=== PATIENT | male | born 1955 | race African-American/Black ===

== ENCOUNTER 2019-10-08 13:25 | Emergency (ER) | payer BC, SELFPAY ==
[2019-10-08 14:18] LABS: Anion Gap 16 mmol/L (10-20); BUN (Urea Nitrogen) 14 mg/dL (8.4-25.7); Calc. Creatinine Clearance 0 mL/min (70-130); Calcium 9.7 mg/dL (7.8-10.44); Carbon Dioxide 23 mmol/L (23-31); Chloride 103 mmol/L (98-107); Estimated GFR-MDRD 78; Glucose 391 mg/dL (80-115); Potassium 4.3 mmol/L (3.5-5.1); Sodium 138 mmol/L (136-145)
[2019-10-08 14:20] LABS: #Basophils 0.1 thou/uL (0.0-0.2); #Eosinphils 0.1 thou/uL (0.0-0.7); #Monocytes 0.5 thou/uL (0.11-0.59); #Neutrophils 1.4 thou/uL (1.40-6.50); %Basophils 2.2 % (0.0-1.0); %Eosinophils 2.8 % (0.0-10.0); %Lymphocytes 48.9 % (21.0-51.0); %Monocytes 12.9 % (0.0-10.0); %Neutrophils 33.2 % (42.0-75.0); Hemoglobin 13.8 g/dL (14.0-18.0); Mean Corpuscular Hemoglobin 29.3 pg (27.0-31.0); Mean Corpuscular Volume 91.5 fL (78.0-98.0); Mean Platelet Volume 6.1 fL (7.4-10.4); Platelet Count 250 thou/uL (130-400); RBC Distribution Width 13.2 % (11.5-14.5); Red Blood Cell (RBC) Count 4.71 mill/uL (4.70-6.10); White Blood Cell (WBC) Count 4.1 thou/uL (4.8-10.8)
[2019-10-08 14:24] LABS: Bicarbonate (HCO3v) 27.3 mmol/L (22.0-28.0); CO2 Tension (PvCO2) 54.1 mmHg (40.0-50.0); Calcium, Ionized 1.23 mmol/L (See Comments:); Chloride 101 mmol/L (98-107); Hemoglobin - Calc 14.6 g/dL (14.0-18.0); Potassium 4.1 mmol/L (3.5-5.1); Sodium 138 mmol/L (138-145); vO2 Saturation-calc 90.4 % (60.0-85.0)
== END 2019-10-08 14:58 | disposition home or self-care (01) ==
LOC: BURERS 13:25
DX: E11.65 Type 2 diabetes mellitus with hyperglycemia (principal); I10 Essential (primary) hypertension; E78.5 Hyperlipidemia, unspecified; Z79.899 Other long term (current) drug therapy; Z79.84 Long term (current) use of oral hypoglycemic drugs; Z79.82 Long term (current) use of aspirin
CPT/HCPCS: 36416; 80048; 82330; 82803; 85025; 96360

== ENCOUNTER 2020-05-13 16:14 | Outpatient (CLI) | payer OTHER ==
--- NOTE | 2020-05-14 07:01 | RAD ---
LEFT LEG: Date: 05/13/2020 AP and lateral views are provided. No fracture or bony destructive lesion seen. There is a curious area of thickening or periosteal prom inence in the upper fibula near the neck. My guess is this is more likely longstanding than not. If t here was pain in this region specifically, then further imaging might be considered. IMPRESSION: No definite acute findings. Some unusual findings in the upper fibula which are more likely longstand ing than not, but if the upper leg is the site of pain, then further studies might be needed. POS: HOME
== END 2020-05-13 16:15 | disposition home or self-care (01) ==
LOC: BURRAD 16:14
PROVIDERS: ATTEND Clinical Nurse Specialist Medical-Surgical
DX: M79.605 Pain in left leg (principal)

== ENCOUNTER 2020-09-05 07:47 | Emergency (ER) | payer MEDICARE, MEDICAID ==
[2020-09-05] MEDS ORDERED: methylPREDNISolone Sod Succ/PF 125 MG/2 ML VIAL ONE (08:34)
== END 2020-09-05 09:00 | disposition home or self-care (01) ==
LOC: BURERS 07:47
DX: M54.5 Low back pain (principal); E11.9 Type 2 diabetes mellitus without complications; E78.5 Hyperlipidemia, unspecified; I10 Essential (primary) hypertension; Z79.899 Other long term (current) drug therapy; Z79.82 Long term (current) use of aspirin; Z79.84 Long term (current) use of oral hypoglycemic drugs
CPT/HCPCS: 96372; 99283; J2930

== ENCOUNTER 2025-08-27 09:20 | Outpatient (CLI) | payer OTHER ==
[2025-08-27 09:47] LABS: #Basophils 0.1 thou/uL (0.0-0.2); #Eosinophils 0.2 thou/uL (0.0-0.7); #Lymphocytes 2.0 thou/uL (1.20-3.40); #Monocytes 0.8 thou/uL (0.11-0.59); #Neutrophils 2.1 thou/uL (1.40-6.50); %Basophils 2.7 % (0.0-1.0); %Eosinophils 3.0 % (0.0-10.0); %Lymphocytes 39.2 % (21.0-51.0); %Monocytes 14.8 % (0.0-10.0); %Neutrophils 40.3 % (42.0-75.0); Hematocrit 45.0 % (42.0-52.0); Hemoglobin 15.9 g/dL (14.0-18.0); Mean Corpuscular Hemoglobin 29.7 pg (27.0-31.0); Mean Corpuscular Volume 83.7 fl (78.0-98.0); Platelet Count 251 10x3/uL (130-400); Red Blood Cell (RBC) Count 5.37 mill/uL (4.70-6.10); White Blood Cell (WBC) Count 5.1 10x3/uL (4.8-10.8)
[2025-08-27 09:51] LABS: INR-International Normal Ratio 1.0; PTT 24.5 sec (22.9-36.1); Prothrombin Time 12.7 sec (12.0-14.7)
[2025-08-27 10:28] LABS: ALT (SGPT) 36 U/L (Less than 45); AST (SGOT) 30 U/L (11-34); Albumin 3.9 g/dL (3.1-4.5); Alkaline Phosphatase 73 U/L (40-110); Anion Gap 18 mmol/L (10-20); BUN (Urea Nitrogen) 11 mg/dL (8.4-25.7); Bilirubin, Total 0.2 mg/dL (0.3-1.2); Calc. Creatinine Clearance 0 mL/min (70-130); Calcium 9.5 mg/dL (7.8-10.44); Carbon Dioxide 20 mmol/L (23-31); Chloride 104 mmol/L (98-107); Globulin 3.2 g/dL (2.4-3.5); Glucose 386 mg/dL (80-115); Potassium 4.3 mmol/L (3.5-5.1); Sodium 138 mmol/L (136-145)
== END 2025-08-27 09:21 | disposition home or self-care (01) ==
LOC: BUREKG 09:20
PROVIDERS: ATTEND Nurse Practitioner Family
DX: Z01.818 Encounter for other preprocedural examination (principal); Z51.81 Encounter for therapeutic drug level monitoring; R60.9 Edema, unspecified; Z79.899 Other long term (current) drug therapy
CPT/HCPCS: 36415; 71046; 80053; 85025; 85610; 85730

== ENCOUNTER 2025-10-06 11:30 | Emergency (ER) | payer OTHER ==
[2025-10-06] MEDS ORDERED: Ondansetron PF 4 MG/2 ML Vial ONE (12:07)
[2025-10-06] MEDS ORDERED: Ketorolac Tromethamine 30 MG (1 mL) VIAL ONE (12:07)
[2025-10-06 12:32] LABS: #Basophils 0.1 thou/uL (0.0-0.2); #Eosinophils 0.0 thou/uL (0.0-0.7); #Lymphocytes 2.9 thou/uL (1.20-3.40); #Monocytes 0.6 thou/uL (0.11-0.59); #Neutrophils 2.4 thou/uL (1.40-6.50); %Basophils 1.6 % (0.0-1.0); %Eosinophils 0.6 % (0.0-10.0); %Lymphocytes 47.6 % (21.0-51.0); %Monocytes 9.5 % (0.0-10.0); %Neutrophils 40.7 % (42.0-75.0); Hematocrit 52.8 % (42.0-52.0); Hemoglobin 16.6 g/dL (14.0-18.0); Mean Corpuscular Hemoglobin 29.0 pg (27.0-31.0); Mean Corpuscular Volume 92.5 fl (78.0-98.0); Platelet Count 243 10x3/uL (130-400); Red Blood Cell (RBC) Count 5.71 mill/uL (4.70-6.10); White Blood Cell (WBC) Count 6.0 10x3/uL (4.8-10.8)
[2025-10-06 12:48] LABS: ALT (SGPT) 40 U/L (Less than 45); AST (SGOT) 32 U/L (11-34); Albumin 4.1 g/dL (3.1-4.5); Alkaline Phosphatase 68 U/L (40-110); Anion Gap 17 mmol/L (10-20); BUN (Urea Nitrogen) 8 mg/dL (8.4-25.7); Bilirubin, Total 0.5 mg/dL (0.3-1.2); Calc. Creatinine Clearance 0 mL/min (70-130); Calcium 9.3 mg/dL (7.8-10.44); Carbon Dioxide 20 mmol/L (23-31); Chloride 104 mmol/L (98-107); Globulin 3.4 g/dL (2.4-3.5); Glucose 269 mg/dL (80-115); Lipase 220 U/L (8-78); Potassium 3.7 mmol/L (3.5-5.1); Sodium 137 mmol/L (136-145); Troponin I Less than 0.010 ng/mL (< 0.028)
== END 2025-10-06 13:41 | disposition home or self-care (01) ==
LOC: BURERS 11:30
DX: R11.2 Nausea with vomiting, unspecified (principal); G89.29 Other chronic pain; M54.6 Pain in thoracic spine; M54.50 Low back pain, unspecified; E11.9 Type 2 diabetes mellitus without complications; E78.5 Hyperlipidemia, unspecified; I10 Essential (primary) hypertension; F17.210 Nicotine dependence, cigarettes, uncomplicated; Z79.899 Other long term (current) drug therapy; Z79.84 Long term (current) use of oral hypoglycemic drugs; Z79.85 Long-term (current) use of injectable non-insulin antidiabetic drugs
CPT/HCPCS: 36415; 74022; 80053; 83690; 84484; 85025; 93005; 96361; 96374; 96375; J1885; J2405